=== PATIENT | female | born 1990 | race Two or more races ===

== ENCOUNTER 2023-11-30 18:47 | Emergency (ER) | payer BC, OTHER ==
[~2023-11-30] VITALS: Ht 160 cm; Wt 194.3 kg
[2023-11-30 20:25] LABS: Basophils # (auto) 0.1 10 ^3/uL (0-0.2); Basophils % (auto) 0.9 % (0.0-2.0); Eosinophils # (auto) 0.3 10 ^3/uL (0-0.8); Eosinophils % (auto) 3.2 % (0.0-7.0); Hematocrit 40.4 % (36.0-46.0); Hemoglobin 13.4 g/dL (12.2-16.2); Lymphocytes # (auto) 3.2 10 ^3/uL (0.4-5.4); Lymphocytes % (auto) 32.5 % (10.0-50.0); Mean Corpuscular Hemoglobin 28.4 pg (28.0-32.0); Mean Corpuscular Hgb Conc. 33.2 g/dL (32.0-36.0); Mean Corpuscular Volume 85.6 fL (80.0-100.0); Monocytes # (auto) 0.6 10 ^3/uL (0-1.3); Monocytes % (auto) 5.7 % (0.0-12.0); Neutrophils # (auto) 5.7 10 ^3/uL (1.6-8.6); Neutrophils % (auto) 57.7 % (37.0-80.0); Red Blood Cells 4.72 10^6/uL (4.0-5.20); Red Cell Distribution Width 14.6 % (11.8-14.3); White Blood Cell 9.8 10^3/uL (4.4-10.8)
[2023-11-30] MEDS: cloNIDine HCL 0.1 MG TAB PO ONE ×2 (20:28→22:31)
[2023-11-30] MEDS: DexAMETHasone SOD PHOS 10MG/1ML VIAL INJ IM ONE (20:29)
[2023-11-30] MEDS: TETANUS-DIPTH-ACEL PERTUSSIS 0.5ML SYR Tdap IM ONE (20:29)
[2023-11-30] MEDS: KETOROLAC TROMETH 60MG/2ML VIAL IM ONE (20:29)
[2023-11-30 20:38] LABS: Alanine Aminotransferase 15 U/L (7-40); Albumin 4.1 g/dL (3.2-4.8); Alkaline Phosphatase 104 U/L (46-116); Anion Gap 7 (5-15); Aspartate Aminotransferase 11 U/L (13-40); BUN/Creatinine Ratio 15.4 (10.0-20.0); Bilirubin, Total 0.2 mg/dL (0.2-1.0); Blood Urea Nitrogen 12 mg/dL (9-23); Calcium 9.6 mg/dL (8.7-10.4); Carbon Dioxide 24 mmol/L (20-30); Chloride 110 mmol/L (98-107); Glucose 175 mg/dL (74-106); Potassium 3.7 mmol/L (3.5-5.1); Sodium 141 mmol/L (136-145)
[2023-11-30] MEDS: CEPHALEXIN 250 MG CAP PO ONE (21:30)
[2023-11-30 23:23] VITALS: BP 155/94; PULSE 76; RESP 16; TEMP 98.7; O2SAT 97
[2023-11-30] MEDS ORDERED: IBUP-1455 PO (23:38)
[2023-11-30] MEDS ORDERED: CEPH250C PO (23:38)
== END 2023-11-30 23:46 | disposition home or self-care (01) ==
LOC: ER 18:49
DX: L08.9 Local infection of the skin and subcutaneous tissue, unspecified (principal); Z88.0 Allergy status to penicillin
CPT/HCPCS: 36415; 80053; 85025; 90471; 90715; 93971; 96372; 99285; J1100; J1885